=== PATIENT | female | born 1970 | race Caucasian/White ===

== ENCOUNTER → 2019-03-06 | Emergency (ER) | payer SELFPAY ==
[~2019-03-06] MED LIST: Iodixanol* (CONTRAST) 320 MG/ML 100 ML SDV IV ONE
--- NOTE | 2019-03-06 11:24 | ED ---
Abdominal Pain/Female - HPI Summary HPI Summary: Pt is a 49 y/o F presenting to the ED with a chief complaint of abd pain located in the epigastric region. The first symptom she noticed was flatulence, which has been ongoing for about 6 months, and then abd pain developed approximately 3 months ago. Over the past day, she started experiencing acid reflux with burping. She also notes intermittent dizzy spells. She denies any diet changes, and stated she took Omeprazole for a while but it did not help. Pt is currently at [employer], and has been sober for eight months. - History of Current Complaint Chief Complaint: EDChestPainROMI Stated Complaint: ABD PAIN PER PT Time Seen by Provider: 03/06/19 11:07 Hx Obtained From: Patient Onset/Duration: Gradual Onset, Lasting Weeks, Still Present Timing: Weeks Severity Initially: Mild Severity Currently: Mild Pain Intensity: 2 Pain Scale Used: 0-10 Numeric Location: Epigastric Radiates: No Character: Burning Aggravating Factor(s): Nothing Alleviating Factor(s): Nothing Associated Signs and Symptoms: Positive: Dizzy, Other: - flatulence, burping Allergies/Adverse Reactions: Allergies Allergy/AdvReac Type Severity Reaction Status Date / Time Penicillins Allergy Swelling Verified 03/06/19 10:57 Of Face,Lips,& Throat PMH/Surg Hx/FS Hx/Imm Hx Previously Healthy: Yes Cardiovascular History: Reports: Hx Hypercholesterolemia, Hx Hypertension GI History: Reports: Hx Gastroesophageal Reflux Disease Psychiatric History: Reports: Hx Substance Abuse - Surgical History Surgery Procedure, Year, and Place: HYSTERECTOMY, T/A Infectious Disease History: No Infectious Disease History: Denies: Traveled Outside the [place] in Last 30 Days - Family History Known Family History: Negative: Cardiac Disease - Social History Lives: [facility] Alcohol Use: Occasionally Hx Substance Use: Yes Substance Use Type: Reports: Cocaine Substance Use Comment - Amount & Last Used: patient from cars, none recently Hx Tobacco Use: Yes Smoking Status (MU): Former Smoker Review of Systems Negative: Other - diet changes Positive: Abdominal Pain, Other - flatulence, burping Neurological: Other - dizziness All Other Systems Reviewed And Are Negative: Yes Physical Exam - Summary Physical Exam Summary: VITAL SIGNS: Reviewed. GENERAL: Patient is a well-developed and nourished female who is lying comfortable in the stretcher. Patient is not in any acute respiratory distress. HEAD AND FACE: No signs of trauma. No ecchymosis, hematomas or skull depressions. No sinus tenderness. EYES: PERRLA, EOMI x 2, No injected conjunctiva, no nystagmus. EARS: Hearing grossly intact. Ear canals and tympanic membranes are within normal limits. MOUTH: Oropharynx within normal limits. NECK: Supple, trachea is midline, no adenopathy, no JVD, no carotid bruit, no c- spine tenderness, neck with full ROM. CHEST: Symmetric, no tenderness at palpation LUNGS: Clear to auscultation bilaterally. No wheezing or crackles. CVS: Regular rate and rhythm, S1 and S2 present, no murmurs or gallops appreciated. ABDOMEN: Soft, non-tender. Distended. No rebound no guarding, and no masses palpated. Bowel sounds are decreased. EXTREMITIES: FROM in all major joints, no edema, no cyanosis or clubbing. NEURO: Alert and oriented x 3. No acute neurological deficits. Speech is normal and follows commands. SKIN: Dry and warm Triage Information Reviewed: Yes Vital Signs On Initial Exam: Initial Vitals Temp Pulse Resp BP Pulse Ox 97.3 F 73 18 107/69 96 03/06/19 10:55 03/06/19 10:55 03/06/19 10:55 03/06/19 10:55 03/06/19 10:55 Vital Signs Reviewed: Yes Diagnostics - Vital Signs Vital Signs Temp Pulse Resp BP Pulse Ox 03/06/19 11:20 84 98/67 03/06/19 11:19 78 98/68 03/06/19 11:17 69 97/63 03/06/19 10:55 97.3 F 73 18 107/69 96 - Laboratory Result Diagrams: 03/06/19 11:31 03/06/19 11:31 Lab Statement: Any lab studies that have been ordered have been reviewed, and results considered in the medical decision making process. - CT CT abd/pelv CT Interpretation Completed By: Radiologist Summary of CT Findings: Patient is status post hysterectomy with left ovarian cyst measuring up to 2.7cm. No abnormal masses or fluid collections are noted. ED physician has reviewed this report. - EKG 1101 Cardiac Rate: NL - 64bpm EKG Rhythm: Sinus Rhythm ST Segment: Normal Ectopy: None Summary of EKG Findings: EKG at 1101 shows NSR at 64bpm with no STEMI. Abdominal Pain Fem Course/Dx - Course Course Of Treatment: This patient is a 49-year-old female who presents to the emergency department with a chief complaint of abdominal bloating, diffuse abdominal pain, increased amount of gas for the last couple months worsening today. The patient denies any nausea or vomiting, denies any fever or chills, and denies any diarrhea or constipation. Patient denies any chest pain shortness of breath or palpitations. Blood work without any significant abnormality except for glucose of 155, CRP is 8.8. Urinalysis is negative for UTI. Patient declined a pelvic exam. Abdominopelvic CT impression: Patient is status post hysterectomy with left ovarian cyst measuring up to 2.7 cm. No abnormal masses or fluid collections. Since the blood work is within normal limits, and the abdominopelvic CT shows no acute abnormality, the patient will be discharged home with follow-up with primary care physician. Patient may benefit from a GI consult. I discussed all the findings and test results with the patient. Patient was instructed to return to the emergency room immediately if any of the symptoms return worsens. Plan of care was discussed with the patient and understands and agrees. All questions were answered at patient satisfaction. There were no further complaints or concerns. Lung exam before discharge: CTA B/L. Good air exchange. No wheezing or crackles heard. CVS: S1 and S2 present. No murmurs appreciated. Patient is alert and oriented x 3. Patient is hemodynamically stable. Patient will be discharged home with follow up PCP in the next 2-3 days - Diagnoses Provider Diagnoses: Diffuse abdominal pain Discharge - Sign-Out/Discharge Documenting (check all that apply): Patient Departure Patient Received Moderate/Deep Sedation with Procedure: No - Discharge Plan Condition: Stable Disposition: HOME Prescriptions: Pantoprazole TAB * [Protonix TAB*] 40 mg PO DAILY #20 tab Referrals: Meggan Johnson MD [Primary Care Provider] - Additional Instructions: Please follow up with your primary care provider within the next 2-3 days. Return to the ED with any new or worsening symptoms. - Billing Disposition and Condition Condition: STABLE Disposition: Home - Attestation Statements Document Initiated by Scribe: Yes Documenting Scribe: Tamela Burgos Provider For Whom Scribe is Documenting (Include Credential): Leopoldo Hadley MD. Scribe Attestation: I, Tamela Burgos, scribed for Leopoldo Hadley MD. on 03/06/19 at 2051. Scribe Documentation Reviewed: Yes Provider Attestation: The documentation as recorded by the scribe, Tamela Burgos accurately reflects the service I personally performed and the decisions made by me, Leopoldo Hadley MD. Status of Scribe Document: Viewed
[2019-03-06 11:45] LABS: ABS Eosinophils 0.2 10^3/ul (0-0.6); ABS Lymphocytes 1.8 10^3/ul (1.0-4.8); ABS Monocytes 0.4 10^3/ul (0-0.8); ABS Neutrophils 3.4 10^3/ul (1.5-7.7); Eosinophil % 3.9 %; Hematocrit 38 % (35-47); Hemoglobin 12.8 g/dL (12.0-16.0); Lymphocyte % 30.5 %; Mean Corpuscular HGB Conc 34 g/dL (31-36); Mean Corpuscular Hemoglobin 30 pg (27-31); Mean Corpuscular Volume 89 fL (80-97); Nucleated Red Blood Cells % 0.2; Platelet Count 223 10^3/uL (150-450); Red Blood Count 4.29 10^6 /uL (3.70-4.87); Red Cell Distribution Width 13 % (10.5-15); White Blood Count 5.8 10^3/uL (3.5-10.8)
[2019-03-06 12:01] LABS: Albumin 4.1 g/dL (3.2-5.2); Albumin/Globulin Ratio 1.9 (1-3); BUN/Creatinine Ratio 12.9 (8-20); C Reactive Protein 8.83 mg/L (<8.01); Calcium 9.3 mg/dL (8.6-10.3); EGFR African American 78.2 (>60); EGFR Non-African American 64.6 (>60); Globulin 2.2 g/dL (2-4); Potassium 4.3 mmol/L (3.5-5.0); Total Bilirubin 0.2 mg/dL (0.2-1.0); Total Protein 6.3 g/dL (6.4-8.9)
[2019-03-06 14:10] LABS: Urine Appearance Cloudy; Urine Bacteria Absent (Absent); Urine Bilirubin Negative (Negative); Urine Blood Negative (Negative); Urine Color Yellow; Urine Glucose Negative (Negative); Urine Ketones Negative (Negative); Urine Nitrite Negative (Negative); Urine Protein Negative (Negative); Urine Red Blood Cell Absent (Absent); Urine Specific Gravity 1.012 (1.010-1.030); Urine Squamous Epithelial Cell Present (Absent); Urine Urobilinogen Negative (Negative); Urine White Blood Cell 1+(6-10/hpf) (Absent)
[2019-03-06 15:12] VITALS: BP 121/75
--- NOTE | 2019-03-09 06:01 | PN ---
Progress Note - Progress Note Date of Service: 03/06/19 Note: Patient was seen for epigastric pain Urine culture final grew aerococcus urinae 100,000 Aerococcus tends to be susceptible to penicillin and cefepime as well as erythromycin Patient is allergic to penicillin Will place on bactrim at this time and await sensitivities Treating prior to sensitivities as this is an isolate - easily to cause bacteremia
== END | disposition home or self-care (01) ==
LOC: ED 10:48
DX: R10.9 Unspecified abdominal pain (principal); I10 Essential (primary) hypertension; E78.00 Pure hypercholesterolemia, unspecified; K21.9 Gastro-esophageal reflux disease without esophagitis; Z88.0 Allergy status to penicillin; Z87.891 Personal history of nicotine dependence; N83.202 Unspecified ovarian cyst, left side; Z90.49 Acquired absence of other specified parts of digestive tract
CPT/HCPCS: 36415; 74177; 80053; 81003; 81015; 82150; 83605; 83690; 83735; 85025; 86140; 87077; 87086; 93005; 99283; Q9967